=== PATIENT | female | born 1950 | race Caucasian/White ===

== ENCOUNTER → 2017-05-31 | Outpatient (CLI) | payer OTHER, MEDICARE ==
[~2017-05-31] MED LIST: OXYC1TAB35 PO; PHEN-556 PO; TRIA1CAP6 PO; TRIA37.5 PO; Z.0.NO CURRENT MEDS; ZOFR4TAB PO
[2017-05-31 12:36] LABS: AUTOMATED NEUTROPHIL # 3.9 TH/MM3 (1.8-7.7); BASOPHIL # 0.1 TH/MM3 (0-0.2); BASOPHIL % 1.2 % (0.0-2.0); EOSINOPHIL # 0.1 TH/MM3 (0-0.4); HEMATOCRIT 37.2 % (35.0-46.0); HEMO FLAGS DIFF FINAL; MEAN CELL VOLUME 88.8 FL (80.0-100.0); MEAN CORPUSCULAR HEMOGLOBIN 29.7 PG (27.0-34.0); MEAN CORPUSCULAR HGB CONC 33.5 % (32.0-36.0); MONO % 5.7 % (0.0-8.0); NEUT % 60.1 % (16.0-70.0); PLATELET COUNT 233 TH/MM3 (150-450); RED BLOOD COUNT 4.19 MIL/MM3 (4.00-5.30); RED CELL DISTRIBUTION WIDTH 12.7 % (11.6-17.2); WHITE BLOOD COUNT 6.5 TH/MM3 (4.0-11.0)
[2017-05-31 13:03] LABS: ALT (GPT) 36 U/L (10-53); ANION GAP 8 MEQ/L (5-15); AST (GOT) 23 U/L (15-37); BICARBONATE 28.1 MEQ/L (21.0-32.0); BLOOD UREA NITROGEN 20 MG/DL (7-18); CHLORIDE 106 MEQ/L (98-107); GLOMERULAR FILTRATION RATE 62 ML/MIN (>89); GLUCOSE,FASTING 90 MG/DL (74-99); POTASSIUM 3.6 MEQ/L (3.5-5.1); SODIUM (NA) 142 MEQ/L (136-145)
[2017-05-31 13:06] LABS: ALKALINE PHOSPHATASE 87 U/L (45-117); TOTAL BILIRUBIN ADULT 0.4 MG/DL (0.2-1.0)
--- NOTE | 2017-06-01 14:35 | EKG ---
Date Performed: 05/31/2017 Time Performed: 11:19:09 PTAGE: 66 years EKG: Sinus rhythm MODERATE INTRAVENTRICULAR CONDUCTION DELAY MODERATE VOLTAGE CRITERIA FOR LVH, CONSIDER NORMAL VARIAN T BORDERLINE ECG Compared to prior tracing no significant change PREVIOUS TRACING : 06/08/2012 08.32 DOCTOR: Mattie Neal Interpretating Date/Time 06/01/2017 14:29:44
== END ==
LOC: CPRE 10:59
PROVIDERS: ATTEND Orthopaedic Surgery
DX: Z01.812 Encounter for preprocedural laboratory examination (principal); Z01.810 Encounter for preprocedural cardiovascular examination; M75.42 Impingement syndrome of left shoulder; M75.122 Complete rotator cuff tear or rupture of left shoulder, not specified as traumatic
CPT/HCPCS: 36415; 80053; 85025; 93005

== ENCOUNTER → 2017-06-09 | Day surgery (SDC) | payer OTHER, MEDICARE ==
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
[~2017-06-09] VITALS: Ht 160 cm; Wt 76.3 kg
[~2017-06-09] MED LIST changes: +ACETAMINOPHEN 1000 MG/100 ML 100 ML IV ONE; +ACETAMINOPHEN/HYDROcodone 325 MG/5 MG TAB PO PRN; +BUPIVACAINE HCL PF 0.5% 30 ML VIAL ONE; +CHLORHEXIDINE GLUCONATE 2 % 1 PACK (2 CLOTHS) TOPICAL PRN; +DEXAMETHASONE SOD PHOS 4 MG/ML VIAL IV ONE; +DO NOT ADM ANY ANTICOAGULANT DRUGS PRN; +EPINEPHrine HCL (1:1000) 30 MG/30 ML VIAL ONE; +KETOROLAC TROMETHAMINE 30 MG/ML (IVP) VIAL IV PUSH ONE; +LACTATED RINGER'S 1000 ML IV PRN; +LIDOCAINE HCL 1% PF 5 ML SYRINGE OTHER ONE; +METOPROLOL TARTRATE 25 MG TAB PO PRN; +MIDAZOLAM HCL 2 MG/2 ML VIAL IV ONE; +MORPHINE SULFATE 4 MG/ML INJ IV PUSH PRN; +ONDANSETRON HCL 4 MG/2 ML VIAL IV PUSH ONE; +ONDANSETRON HCL 4 MG/2 ML VIAL IV PUSH PRN; +POVIDONE IODINE 5% (ANTISEPSIS KIT) 4 APPLICATIONS EACH NARE PRN; +POVIDONE IODINE 7.5% SCRUB 118 ML BOTTLE TOPICAL SCH; +PROPOFOL 200 MG/20 ML AMP IV ONE; +SODIUM CHLOR 0.9% 1000 ML INJ 1,000 ML IV SCH; +SODIUM CHLORID 0.9% 500 ML IV PRN; -TRIA1CAP6 PO; +VANCOMYCIN 1000 MG/NS 250 ML (for <70 kg) IV SCH; -Z.0.NO CURRENT MEDS; +ceFAZolin 2 GM PREMIX 50 ML IV SCH
--- NOTE | 2017-06-09 11:19 | MP ---
cc: DAXA GORDON DATE OF SURGERY: 06/09/2017 PREOPERATIVE DIAGNOSIS 1. Rotator cuff tear left shoulder. 2. Biceps tendinopathy left shoulder. POSTOPERATIVE DIAGNOSIS 1. Rotator cuff tear left shoulder. 2. Biceps tendinopathy left shoulder. OPERATIVE PROCEDURE Arthroscopic surgery left shoulder consisting of the followin. Debridement of the joint including biceps tenotomy. 2. Arthroscopic rotator cuff repair. 3. Arthroscopic modified Larissa procedure. SURGEON Dr. Gordon. ANESTHESIA General. TECHNIQUE After induction of general anesthesia with endotracheal intubation and scalene block, the patient was placed in left lateral position, supported by [facility] positioner with the patient tilted towards the surgeon. The left arm was placed in traction with 20 pounds in about 30 degrees of abduction. Left shoulder girdle was thoroughly prepped with alcohol and ChloraPrep and draped in routine fashion. Bony prominences were marked and the scope was introduced to the posterior soft spot and systematic visualization of the joint was carried out. There is significant synovitis in the joint as well as obvious shredding of the proximal end of the biceps involving at least 50% of the tendon. Subscapularis was intact, infraspinatus was intact but there is complete tear of the supraspinatus anterior to posterior. Anterolateral portal established and using the ArthroCare system the biceps tenotomy was carried out. The biceps tendon seems to hang in the groove, which is fine. After debridement of the joint the humeral head and glenoid was in satisfactory condition. Posterior labrum was intact. The scope was then introduced in the subacromial space and a mid lateral portal established and ArthroCare was used to debride the bursal tissue here, at which point we had to contend with significant amount of bleeding, taking several minutes to control it with the ArthroCare coagulation system. Once this was accomplished we are able to do acromioplasty and debride the bursa, look at the rotator cuff, decorticate the humerus just lateral to the articular surface. We used the speed-bridge anchor system with Anterior and posterior 4.75 anchor a few millimeters lateral to the articular margin. The sutures were crossed and anchored distally with swivel lock anchors. Had to use additional fiber loop in the posterior aspect of this tear where there is a significant retraction and some contracture, to bring it all together. When we finished there was good apposition of the supraspinatus to the bone, except for the posterior corner because of the contracture there. The sutures were cut and subacromial space reexamined. There is spurring of the lateral end of the clavicle and therefore modified Larissa procedure was done with some additional acromioplasty. The joint was thoroughly lavaged, suctioned out and the instrumentation was withdrawn and the portals closed with interrupted 3-0 Nylon sutures. Dressing was applied with Xeroform, 4x4s, ABD and Medipore tape, ultra sling applied. The patient was transferred to the recovery room in satisfactory condition. The patient tolerated the procedure well. TRANSFUSIONS AND COMPLICATIONS None. POSTOPERATIVE CONDITION Satisfactory. PROGNOSIS This patient was very concerned about biceps tenotomy without tenodesis. There was absolutely no indication to do a tenodesis here especially with the shredding of the proximal end of the biceps. Tenotomy is the right choice. MD SHANE Renae/SANDRA /10:27 AM /10:52 AM
[2017-06-09 12:30] VITALS: BP 149/95; PULSE 77; RESP 16; TEMP 97.4; O2SAT 100
== END | disposition home or self-care (01) ==
LOC: HSDC 05:21
PROVIDERS: ATTEND Orthopaedic Surgery
DX: M75.122 Complete rotator cuff tear or rupture of left shoulder, not specified as traumatic (principal); M75.42 Impingement syndrome of left shoulder; I10 Essential (primary) hypertension
CPT/HCPCS: 01630; 29824; 29827; C1713; J0131; J0171; J0690; J1100; J1885; J2250; J2405; J3010; J3370; J7050; J7120